=== PATIENT | female | born 1990 | race Caucasian/White ===

== ENCOUNTER → 2016-05-10 | Outpatient (CLI) | payer MEDICAID ==
[~2016-05-10] MED LIST: FERROUS SULFAT325 M2 PO; HYDROCODONE-APA1 TA1 PO; TRAZODONE100 MG PO
== END ==
LOC: LAB 09:44
DX: N83.201 Unspecified ovarian cyst, right side (principal)

== ENCOUNTER → 2016-06-05 | Outpatient (CLI) | payer MEDICAID ==
--- NOTE | 2016-06-19 11:02 | RADIOLOGY REPORT PS360 ---
US PELVIS (NO FETUS) HISTORY: FU OVARIAN CYSTS ORDERING PHYSICIAN: Primitivo Polanco MD PATIENT AGE: 25 years COMPARISON: 05/17/2016 FINDINGS: There has been a prior hysterectomy. Just to the left of midline there is a 6 x 3 cm cystic area. Previous ultrasound demonstrated a 4 x 3 cm cyst in the right pelvic region. Patient's mother states that there is been a hysterectomy and left oophorectomy. Technologist notes that there is other reports that there has been a complete hysterectomy. Please correlate with patient's surgical history and surgical nodes. No other significant anomalies are evident. IMPRESSION: 6 x 3 cm cystic area just to the left of midline and could represent an ovarian cyst or other cystic abnormality. Please correlate with accurate surgical history.
== END ==
LOC: RAD 12:21
DX: N94.89 Other specified conditions associated with female genital organs and menstrual cycle (principal)